=== PATIENT | male | born 1980 | race Two or more races ===

== ENCOUNTER → 2018-06-26 | Outpatient (CLI) | payer OTHER ==
--- NOTE | 2018-06-26 15:55 | MR ---
EXAMINATION TYPE: MR lumbar spine wo con DATE OF EXAM: 06/26/2018 COMPARISON: NONE HISTORY: LBP, rt leg weakness/numbness x 3 years TECHNIQUE: Multiplanar, multisequence imaging of the lumbar spine is performed without IV contrast. FINDINGS: Sagittal images of the lumbar spine show vertebral body heights and alignment to appear sat isfactory. There is disc desiccation L5-S1 level otherwise the intervertebral discs demonstrate shadi l heights and hydration. No large posterior disc herniations are seen on sagittal images. The conus medullaris is normal in position and signal ending inferior L1 level. The bone marrow signal intensi ty is within normal limits. No significant spurring is seen. Axial images show the T12-L1, L1-L2, L2-L3, L3-L4, and L4-L5 levels all to appear within normal limit s. Axial images at L5-S1 level show no significant disc herniation, spinal canal stenosis, neural forami nal narrowing. No suspicious retroperitoneal findings are seen. The paraspinal spinal muscle bulk is maintained. IMPRESSION: Disc desiccation L5-S1 level otherwise unremarkable study.
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
== END | disposition home or self-care (01) ==
LOC: RADMRIMAIN 14:28
PROVIDERS: ATTEND Psychiatry & Neurology Neurology
DX: R90.89 Other abnormal findings on diagnostic imaging of central nervous system (principal); R93.0 Abnormal findings on diagnostic imaging of skull and head, not elsewhere classified; M54.5 Low back pain
CPT/HCPCS: 70553; 72148; A9581

== ENCOUNTER → 2018-08-20 | Outpatient (CLI) | payer OTHER ==
--- NOTE | 2018-08-21 02:02 | MR ---
EXAMINATION TYPE: MR cervical spine wo con DATE OF EXAM: 08/20/2018 COMPARISON: None HISTORY: Neck pain, headaches TECHNIQUE: Multiplanar, multisequence images of the cervical spine were acquired. Findings Cervical vertebra have normal spacing and alignment. Posterior elements are intact. There is no compr ession fracture. Cervical spinal cord has normal signal pattern. There is no edema. There is no cervi jonathan spinal stenosis. There is no sign of cervical disc herniation. Brainstem appears normal. There is no sign of cervical paraspinal mass. IMPRESSION: Normal MR scan of the cervical spine.
== END | disposition home or self-care (01) ==
LOC: RADMRIMAIN 15:36
PROVIDERS: ATTEND Psychiatry & Neurology Pain Medicine
DX: M54.2 Cervicalgia (principal)
CPT/HCPCS: 72141

== ENCOUNTER 2018-11-04 16:31 | Inpatient (IN) | payer OTHER ==
[2018-11-04 18:11] LABS: Basophils # (A) 0.1 k/uL (0-0.2); Basophils % (A) 1 %; Eosinophils # (A) 0.3 k/uL (0-0.7); Eosinophils % (A) 3 %; HCT 46.7 % (39.0-53.0); HGB 15.7 gm/dL (13.0-17.5); Lymphocytes % (A) 34 %; MCH 28.4 pg (25.0-35.0); MCHC 33.6 g/dL (31.0-37.0); MCV 84.6 fL (80.0-100.0); Mean Platelet Volume 6.5; Monocytes # (A) 0.7 k/uL (0-1.0); Monocytes % (A) 6 %; Neutrophils # (A) 6.4 k/uL (1.3-7.7); Neutrophils % (A) 55 %; Platelet Count 314 k/uL (150-450); RBC 5.53 m/uL (4.30-5.90); RDW 12.8 % (11.5-15.5); WBC 11.6 k/uL (3.8-10.6)
[2018-11-04 18:18] LABS: ALT 53 U/L (21-72); AST 33 U/L (17-59); Albumin 4.4 g/dL (3.5-5.0); Alkaline Phosphatase 66 U/L (38-126); Anion Gap 10 mmol/L; Blood Urea Nitrogen 17 mg/dL (9-20); Calcium 9.4 mg/dL (8.4-10.2); Carbon Dioxide 27 mmol/L (22-30); Chloride 105 mmol/L (98-107); Glucose 96 mg/dL (74-99); Potassium 4.3 mmol/L (3.5-5.1); Sodium 142 mmol/L (137-145); Total Bilirubin 0.8 mg/dL (0.2-1.3); Total Protein 7.9 g/dL (6.3-8.2)
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
--- NOTE | 2018-11-04 19:51 | CT ---
EXAMINATION TYPE: CT brain wo con DATE OF EXAM: 11/04/2018 COMPARISON: None HISTORY: Double vision and dizziness CT DLP: 1146.4 mGycm. Automated Exposure Control for Dose Reduction was Utilized. TECHNIQUE: CT scan of the head is performed without contrast. FINDINGS: Ventricles and sulci appear normal. There is no mass effect nor midline shift. There is no sign of intracranial hemorrhage. The calvarium is intact. Impression negative CT scan of the brain.
[2018-11-04] MEDS ORDERED: NALOXONE 0.4 MG/ML 1 ML VIAL IV PRN (21:03)
[2018-11-05] MEDS ORDERED: SUMAtriptan SUCCINATE 50 MG TAB PO STA (00:15)
[2018-11-05] MEDS: SODIUM CHLORIDE 0.9% 1,000 ML IV SCH ×2 (06:46→21:32)
[2018-11-05] MEDS ORDERED: INFLUENZA VACCINE (6 MOS+) 60 MCG/0.5 ML SYRINGE IM ONE (12:53)
--- NOTE | 2018-11-05 13:09 | MR ---
MR brain without contrast HISTORY: Diplopia Multiplanar multisequence imaging through the brain. Correlation to prior brain MRI 06/26/2018, CT brain 11/04/2018 There is no restricted diffusion present. There is no hemorrhage or hydrocephalus. Periventricular co nfluent and scattered hyperintensities are present on inversion recovery and T2-weighted sequences si milar to prior exam. There are normal vascular flow voids present. Corpus callosum, pituitary, cervic al medullary junction, cerebellopontine angles are unremarkable. Inflammatory change present in the r ight mastoid air cells. Orbits show symmetric appearance. IMPRESSION: Stable abnormal brain MRI, correlate for possible multiple sclerosis, migraine headache, hypertension, vasculitis, Lyme disease. Inflammatory change right mastoid air cells.
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
[2018-11-06] MEDS ORDERED: buPROPion XL 150 MG TAB.ER.24H PO SCH (09:00)
[2018-11-06] MEDS: PROPRANOLOL 40 MG TAB PO SCH ×2 (09:13→23:22)
[2018-11-06] MEDS: MONTELUKAST 10 MG TAB PO SCH (09:13)
[2018-11-06] MEDS: SUMAtriptan SUCCINATE 50 MG TAB PO PRN (09:13)
[2018-11-06 11:34] LABS: Basophils % (A) 0 %; Eosinophils # (A) 0.1 k/uL (0-0.7); Eosinophils % (A) 0 %; HCT 46.2 % (39.0-53.0); HGB 16.3 gm/dL (13.0-17.5); Lymphocytes # (A) 1.4 k/uL (1.0-4.8); Lymphocytes % (A) 10 %; MCH 29.5 pg (25.0-35.0); MCHC 35.3 g/dL (31.0-37.0); MCV 83.7 fL (80.0-100.0); Mean Platelet Volume 6.6; Monocytes # (A) 0.2 k/uL (0-1.0); Monocytes % (A) 2 %; Neutrophils # (A) 12.5 k/uL (1.3-7.7); Neutrophils % (A) 88 %; Platelet Count 308 k/uL (150-450); RBC 5.52 m/uL (4.30-5.90); RDW 12.7 % (11.5-15.5); WBC 14.2 k/uL (3.8-10.6)
[2018-11-06 11:45] LABS: Anion Gap 11 mmol/L; Blood Urea Nitrogen 14 mg/dL (9-20); Calcium 9.8 mg/dL (8.4-10.2); Carbon Dioxide 25 mmol/L (22-30); Chloride 104 mmol/L (98-107); Glucose 201 mg/dL (74-99); Magnesium 1.9 mg/dL (1.6-2.3); Potassium 4.5 mmol/L (3.5-5.1); Sodium 140 mmol/L (137-145)
--- NOTE | 2018-11-06 14:45 | P.CRDCN ---
History of Present Illness History of present illness: This is a pleasant 38-year-old male past medical history significant for paroxysmal atrial fibrillation status post ablation in 2016 in [place]. He states he underwent ablation in 2016 and less than a year later he started having episodes of paroxysmal atrial fibrillation again. He has a loop recorder in place and is established in town with Dr. Upton he also has a history of obstructive sleep apnea, migraine headaches and traumatic brain injury. The patient states he has undergone a stress test and echocardiogram in the past and as far as he was told everything was normal. Records are unavailable at this time. He states for the previous few days he's noticed that his vision has been blurred and he is seeing things". He first noticed it while he was watching television was reading subtitle sinus seemed as though he had very close to the TV in order to make double vision go away. Then yesterday while he was driving he was seen in the vehicle in front of them also appear on the right sided in his peripheral vision. He has undergone a full neurologic workup as well as been seen in consultation by neurology. Diagnostic testing reveals no evidence of an acute intracranial abnormality however there is evidence of scattered hyperintensities noted on the MRI which were apparently similar to previous study. He denies symptoms of chest discomfort, palpitations, dizziness or shortness of breath. He states he cannot usually tell when he is in atrial fibrillation. He had his loop recorder interrogated in the office earlier this year in March showed sinus mechanism with no acute arrhythmia noted. EKG obtain reveals sinus mechanism. Laboratory data reviewed, WBC 14.2, hemoglobin 16.3, plethora, sodium 140, potassium 4.5, creatinine 0.5, magnesium 1.9. CT of the brain negative for acute intracranial process. MRI of the brain indicates a stable abnormal brain MRI with no evidence of hemorrhage or hydrocephalus. Scattered hyperintensities noted similar to prior exam inflammatory change noted of the right mastoid air cells. Current cardiac medications include propanolol 40 mg twice a day. At the time of my exam: CONSTITUTIONAL: Denies fever. Denies chills. EYES: Denies blurred vision. Denies vision changes. Denies eye pain. EARS, NOSE, MOUTH & THROAT: Denies headache. Denies sore throat. Denies ear pain. CARDIOVASCULAR: Denies chest pain. Denies shortness of breath. Denies orthopnea. Denies PND. Denies palpitations. RESPIRATORY: Denies cough. GASTROINTESTINAL: Denies abdominal pain. Denies diarrhea. Denies constipation. Denies nausea. Denies vomiting. MUSCULOSKELETAL: Denies myalgias. INTEGUMENTARY: Denies pruitis. Denies rash. NEUROLOGIC: Denies numbness. Denies tingling. Denies weakness. PSYCHIATRIC: Denies anxiety. Denies depression. ENDOCRINE: Denies fatigue. Denies weight change. Denies polydipsia. Denies polyurina. GENITOURINARY: Denies burning, hematuria or urgency with micturation. HEMATOLOGIC: Denies history of anemia. Denies bleeding. Blood pressure 169/91 heart rate 93 afebrile maintaining oxygen saturation on room air GENERAL: This is a 38-year-old male in no apparent distress at the time of my examination. Obese. HEENT: Head is atraumatic, normocephalic. Pupils are equal, round. Sclerae anicteric. Conjunctivae are clear. Mucous membranes of the mouth are moist. Neck is supple. There is no jugular venous distention. No carotid bruit is heard. LUNGS: Clear to auscultation no wheezes, rales or rhonchi. No chest wall tenderness is noted on palpation or with deep breathing. HEART: Regular rate and rhythm without murmurs, rubs or gallops. S1 and S2 heard. ABDOMEN: Soft, nontender. Bowel sounds are heard. No organomegaly noted. EXTREMITIES: No evidence of peripheral edema and no calf tenderness noted. VASCULAR: Radial and dorsalis pedis pulses palpated, no evidence of clubbing. NEUROLOGIC: Patient is awake, alert and oriented x3. ASSESSMENT Paroxysmal atrial fibrillation not on timber faller anticoagulation, CHADS-VASC score 0. Currently has a loop recorder in place. History of ablation while living in [place] Diplopia History of traumatic brain injury PLAN Telemetry tracings have been reviewed and there is no evidence of any atrial fibrillation. A message has been left with Dr. Rosen regarding clarification as to whether or not this event is being deemed a CVA. If in fact the patient has suffered a CVA he will then require long-term anticoagulation for his atrial fibrillation. Obtain 2D echocardiogram and doppler study to assess cardiac structure and function. We will continue to follow and make recommendations accordingly. Thank you kindly for this consultation. Nurse Practitioner note has been reviewed, I agree with a documented findings and plan of care. Patient was seen and examined. Past Medical History Past Medical History: Atrial Fibrillation, Memory Impairment, Pneumonia Additional Past Medical History / Comment(s): Migraines, bronchitis History of Any Multi-Drug Resistant Organisms: None Reported Past Surgical History: Ablation, Appendectomy, Cholecystectomy Additional Past Surgical History / Comment(s): cardiac ablastion x 2, loop recorder, intra ocular lens replacements bilaterally. Past Anesthesia/Blood Transfusion Reactions: No Reported Reaction, Motion Sickness Smoking Status: Never smoker - Past Family History Father Family Medical History: Diabetes Mellitus, Hypertension Mother Family Medical History: Diabetes Mellitus, Hypertension Medications and Allergies Home Medications Medication Instructions Recorded Confirmed Type Memantine [Namenda] 10 mg PO DAILY 11/04/18 11/04/18 History Montelukast [Singulair] 10 mg PO DAILY 11/04/18 11/04/18 History Naproxen 500 mg PO DAILY 11/04/18 11/04/18 History Propranolol [Inderal] 40 mg PO BID 11/04/18 11/04/18 History SUMAtriptan SUCCINATE [Imitrex] 100 mg PO DIRECTED 11/04/18 11/04/18 History buPROPion HCL [Wellbutrin XL] 300 mg PO DAILY 11/04/18 11/04/18 History buPROPion XL [Wellbutrin XL] 150 mg PO DAILY 11/04/18 11/04/18 History Allergies Allergy/AdvReac Type Severity Reaction Status Date / Time No Known Allergies Allergy Verified 11/04/18 17:28 Physical Exam Vitals: Vital Signs Temp Pulse Pulse Pulse Resp BP BP 11/06/18 12:05 97.6 F 93 15 169/91 11/06/18 08:00 98 15 11/06/18 05:00 97.7 F 105 H 18 118/70 11/05/18 23:24 80 18 11/05/18 21:00 97.7 F 80 18 152/92 11/05/18 19:05 98.1 F 92 18 130/89 11/05/18 17:31 98.3 F 80 18 140/88 Pulse Ox 11/06/18 12:05 97 11/06/18 08:00 11/06/18 05:00 96 11/05/18 23:24 11/05/18 21:00 100 11/05/18 19:05 99 11/05/18 17:31 100 Intake and Output 11/05/18 11/06/18 11/06/18 22:59 06:59 14:59 Intake Total 640 Balance 640 Intake: Intake, IV Titration 220 Amount Sodium Chloride 0.9% 1, 120 000 ml @ 20 mls/hr IV . Q24H [facility] Rx#:[id number] methylPREDNISolone SOD 100 SUCC 500 mg In Sodium Chloride 0.9% 100 ml @ 100 mls/hr IVPB ONCE STA Rx#:[id number] Oral 420 Other: # Voids 1 2 Results 11/06/18 11:15 11/06/18 11:15 CBC 11/06/18 Range/Units 11:15 WBC 14.2 H (3.8-10.6) k/uL RBC 5.52 (4.30-5.90) m/uL Hgb 16.3 (13.0-17.5) gm/dL Hct 46.2 (39.0-53.0) % Plt Count 308 (150-450) k/uL Comprehensive Metabolic Panel 11/06/18 Range/Units 11:15 Sodium 140 (137-145) mmol/L Potassium 4.5 (3.5-5.1) mmol/L Chloride 104 (98-107) mmol/L Carbon Dioxide 25 (22-30) mmol/L BUN 14 (9-20) mg/dL Creatinine 0.84 (0.66-1.25) mg/dL Glucose 201 H (74-99) mg/dL Calcium 9.8 (8.4-10.2) mg/dL Current Medications Generic Name Dose Route Start Last Admin Trade Name Freq PRN Reason Stop Dose Admin Bupropion HCl 150 mg 11/06/18 09:00 11/06/18 10:14 Wellbutrin Xl PO 150 mg DAILY [facility] Administration Sodium Chloride 1,000 mls @ 20 mls/hr 11/04/18 21:15 11/05/18 21:32 Saline 0.9% IV 20 mls/hr .Q24H [facility] Administration Montelukast Sodium 10 mg 11/06/18 09:00 11/06/18 09:13 Singulair PO 10 mg DAILY [facility] Administration Naloxone HCl 0.2 mg 11/04/18 21:03 Narcan IV Q2M PRN Opioid Reversal Propranolol HCl 40 mg 11/06/18 09:00 11/06/18 09:13 Inderal PO 40 mg BID [facility] Administration Sumatriptan Succinate 100 mg 11/06/18 08:49 11/06/18 09:13 Imitrex PO 100 mg DAILY PRN Administration Migraine Headache Intake and Output 11/05/18 11/06/18 11/06/18 22:59 06:59 14:59 Intake Total 640 Balance 640 Intake: Intake, IV Titration 220 Amount Sodium Chloride 0.9% 1, 120 000 ml @ 20 mls/hr IV . Q24H [facility] Rx#:[id number] methylPREDNISolone SOD 100 SUCC 500 mg In Sodium Chloride 0.9% 100 ml @ 100 mls/hr IVPB ONCE STA Rx#:[id number] Oral 420 Other: # Voids 1 2 11/06/18 11:15 11/06/18 11:15
[2018-11-06] MEDS ORDERED: buPROPion XL 150 MG TAB.ER.24H PO ONE (15:45)
[2018-11-06] MEDS ORDERED: buPROPion XL 300 MG TAB.ER.24H PO ONE (16:00)
--- NOTE | 2018-11-06 17:29 | P.PN ---
Subjective Progress Note Date: 11/06/18 Patient is a pleasant 38-year-old male who is being followed by the neurology service for diplopia. Patient reports having double vision will driving his car yesterday. Patient states his double vision is horizontal. Patient denies headache. He does report nausea when he gets double vision. No lateralizing weakness. No focal neurological deficit. CT of the brain was done which showed no acute abnormality. MRI of the brain showed nonspecific white matter changes which was unchanged from previous MRI of 06/26/2018. Patient does have history of traumatic brain injury from a accident. Patient continues to complain of diplopia and will be seen by ophthalmology for an evaluation. At the time of my evaluation, patient's resting comfortably in bed and appears to be in no acute distress. Objective - Vital Signs Vital signs: Vital Signs Temp 97.6 F 11/06/18 12:05 Pulse 93 11/06/18 12:05 Resp 15 11/06/18 12:05 BP 169/91 11/06/18 12:05 Pulse Ox 97 11/06/18 12:05 Intake & Output 11/05/18 11/06/18 11/06/18 18:59 06:59 18:59 Intake Total 640 1360 Balance 640 1360 Intake: Intake, IV Titration 220 100 Amount Sodium Chloride 0.9% 1, 120 100 000 ml @ 20 mls/hr IV . Q24H [facility] Rx#:[id number] methylPREDNISolone SOD 100 SUCC 500 mg In Sodium Chloride 0.9% 100 ml @ 100 mls/hr IVPB ONCE STA Rx#:[id number] Oral 420 1260 Other: # Voids 2 3 - Exam PHYSICAL EXAM: GENERAL APPEARANCE: Patient is a well-developed, male who appears to be in no acute distress. HEENT: Normocephalic, atraumatic, no facial asymmetry is seen. Neck is supple with no masses felt. CARDIOVASCULAR: Regular rate and rhythm. ABDOMEN: Nontender, nondistended. EXTREMITIES: Show no edema or clubbing. NEUROLOGICAL EXAM: Patient is awake, alert, and oriented 3. Speech and language are normal. Strength is full in all 4 extremities. Sensory exam is normal to light touch in all 4 extremities. No facial asymmetry is seen on cranial nerve testing. No tremors or seizure-like activity noted. - Labs CBC & Chem 7: 12/12/18 11:15 11/06/18 11:15 Labs: Abnormal Lab Results - Last 24 Hours (Table) 11/06/18 11/06/18 Range/Units 11:15 11:15 WBC 14.2 H (3.8-10.6) k/uL Neutrophils # 12.5 H (1.3-7.7) k/uL Glucose 201 H (74-99) mg/dL Assessment and Plan Plan: Impression: 1. Diplopia 2. History of traumatic brain injury 3. Atrial fibrillation Recommendation: Patient continues to have double vision and is awaiting evaluation from ophthalmology. As mentioned above, patient has nonspecific white matter changes on his MRI but this is unchanged as compared to previous MRI. Patient does have history of traumatic brain injury which could be white matter changes that are seen on the MRI. Patient did receive a dose of IV Solu- Medrol 500 mg and patient states it seemed to have helped him. I do recommend a myasthenia gravis panel laboratory workup. Continue current medical management. I will continue to follow with you. Further recommendations to follow. I performed an examination of the patient and discussed the management with the PURCHASING SUPERVISOR. I have reviewed the PURCHASING SUPERVISOR notes and agree with the findings and plan of care.
[2018-11-06] MEDS: SODIUM CHLORIDE 0.9% 1,000 ML IV SCH (23:23)
--- NOTE | 2018-11-07 00:02 | CONS ---
CONSULTATION SERVICE CONSULTED: Ophthalmology. DATE OF SERVICE: 11/06/2018. CHIEF COMPLAINT: Double vision. HISTORY OF PRESENT ILLNESS: The patient is a 38-year-old male with a known history of atrial fibrillation with cardiac ablation and migraine headache, who presented with 2-day history of double vision. The patient states that he was driving on Sunday and noticed that the cars in the road were double. No vision was horizontal. There was no associated headache. There is no associated numbness or tingling or vertigo. The double vision has been constant since the onset and has not changed. The double vision goes away when he closes one eye. The patient has no history of any similar visual symptoms in the past. REVIEW OF SYSTEMS: The patient denies fever, chills, chest pain, shortness of breath. He has occasional headaches that are stable. He denies vomiting or nausea. PAST MEDICAL HISTORY: Atrial fibrillation, migraine headaches. PAST SURGICAL HISTORY: Cardiac ablation, appendectomy, cholecystectomy. 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 SMOKING STATUS: Never smoked. PAST MEDICAL HISTORY: Significant for diabetes mellitus and hypertension. No ocular family history. HOME MEDICATIONS: 1. Singular. 2. Namenda. 3. Propranolol. 4. Imitrex. 5. Wellbutrin. ALLERGIES: No known drug allergies. DIAGNOSTIC STUDIES: MRI was performed and reveals periventricular confluent hyperintensities that may be consistent with multiple sclerosis, vasculitis or Lyme disease. OPHTHALMOLOGIC EXAM: Reveals visual acuity of 20/30 in the right eye without correction and 20/30 in the left eye without correction. Intra-ocular pressures are 17 in both eyes. Pupils are equal, round, reactive to light and accommodation. There is no afferent pupillary defect. Extraocular movements reveal limited abduction of the left eye. Otherwise, extraocular movements are full. Confrontation visual oconnor are full in both eyes. Corneal examination reveals an ICL in both corneas. Lenses are clear in both eyes. The remainder of the ophthalmic exam is within normal limits. ASSESSMENT: Sixth nerve palsy, left eye. The patient presents with new onset sixth nerve palsy. The differential diagnosis considering his age, body habitus, and MRI results are multiple sclerosis or possible increased intracranial pressure causing a sixth nerve palsy. I recommend consultation with a neurologist. I would also recommend a lumbar puncture to check opening pressures and also to sample the cerebral spinal fluid for diagnostic evaluation. After evaluation with Neurology and lumbar puncture is complete, I can re-evaluate the patient. Patient to be seen as an outpatient after discharge within 1 week of discharge. Thank you for allowing me to participate in this patient's care. SAMI / SYDN: [id number] /
--- NOTE | 2018-11-07 03:42 | P.PN ---
Subjective Progress Note Date: 11/06/18 Principal diagnosis: Diplopia History of traumatic brain injury with white matter changes in the MRI Patient is a 38-year-old male with a known history of atrial fibrillation and cardiac ablation, migraine headache came to the hospital with the complaints of double vision. Patient says that his symptoms started since last Sunday. Patient was driving the car on Sunday afternoon and suddenly he noticed was having double vision by seeing the front car [id number]. Patient states this only occurs with objects that are greater than 5 or 10 feet away. Patient feels like his eyes have been straining, otherwise no significant headache. No complaints of eye pain. Patient does have a history of headaches however not associated with this. No confusion. No weakness. Patient does have some mild dizziness/lightheadedness and mild nausea. No vomiting. No spinning type sensation. No history of similar visual problems previously. Patient does have a history of atrial fibrillation and ablation. Patient is currently not on any anticoagulation after ablation. Patient does follow with cardiology clinic as an outpatient. Patient says that he had a history of traumatic brain injury. No history of brain surgery. Denied any recent illnesses except diarrhea and dizziness on last Sunday which has been resolved at this time. No fever no chills. No chest pain or shortness of breath. MRI of the brain showed stable findings. Correlate for possible multiple sclerosis, migraine headache, hypertension, vasculitis, length disease. Inflammatory change right mastoid air cells. CT head showed negative findings. 11/06/2018 Patient is still complaining of double vision but seems to be improved compared to yesterday. MRI findings of white matter changes could be due to traumatic brain injury as per neurology. Patient was given a dose of methylprednisolone. Neurology recommends myasthenia gravis panel workup. Patient was seen by cardiology and recommended no anticoagulation with CHADS : 0. Unless patient is suspected to have acute CVA. Patient is currently maintained in sinus rhythm. Ophthalmology evaluation is pending at this time. All other review of systems negative except the above. No chest pain or shortness of breath. No fever no chills. Objective - Vital Signs Vital signs: Vital Signs Temp 98.0 F 11/06/18 20:01 Pulse 100 11/06/18 20:01 Resp 16 11/06/18 20:01 BP 132/76 11/06/18 20:01 Pulse Ox 97 11/06/18 20:01 Intake & Output 11/06/18 11/06/18 11/07/18 06:59 18:59 06:59 Intake Total 640 1360 Balance 640 1360 Intake: Intake, IV Titration 220 100 Amount Sodium Chloride 0.9% 1, 120 100 000 ml @ 20 mls/hr IV . Q24H [facility] Rx#:[id number] methylPREDNISolone SOD 100 SUCC 500 mg In Sodium Chloride 0.9% 100 ml @ 100 mls/hr IVPB ONCE STA Rx#:[id number] Oral 420 1260 Other: # Voids 2 3 - Exam PHYSICAL EXAMINATION: Patient is lying in the bed comfortably, no acute distress, awake alert and oriented.. HEENT: Normocephalic. Neck is supple. Pupils reactive. Nostrils clear. Oral cavity is moist. Ears reveal no drainage. Neck reveals no JVD, carotid bruits, or thyromegaly. CHEST EXAMINATION: Trachea is central. Symmetrical expansion. Lung oconnor clear to auscultation and percussion. CARDIAC: Normal S1, S2 with no gallops. No murmurs ABDOMEN: Soft. Bowel sounds normal. No organomegaly. No abdominal bruits. Extremities: reveal no edema. No clubbing or cyanosis Neurologically awake, alert, oriented x3 with well-coordinated movements. No focal deficits noted Skin: No rash or skin lesions. Psychiatric: Coperative. Nonsuicidal Musculoskeletal: No joint swelling or deformity. Normal range of motion. - Labs CBC & Chem 7: 11/06/18 11:15 11/06/18 11:15 Labs: Abnormal Lab Results - Last 24 Hours (Table) 11/06/18 11/06/18 Range/Units 11:15 11:15 WBC 14.2 H (3.8-10.6) k/uL Neutrophils # 12.5 H (1.3-7.7) k/uL Glucose 201 H (74-99) mg/dL Assessment and Plan Assessment: Diplopia with history of rheumatic brain injury.. History of atrial fibrillation status post ablation 2. Currently maintaining sinus rhythm. History of intraocular lens replacements bilaterally Migraine headache Memory impairment Depression DVT prophylaxis with early ambulation Plan: 38-year-old male with a known history of atrial fibrillation status post ablation 2 currently maintained in sinus rhythm was admitted to the hospital double vision for the past 3 days. MRI showed no evidence of CVA. Neurology recommends myasthenia gravis panel. Neurology and ophthalmology was consulted. . Continue the telemetry monitoring. Audiology has seen the patient.. Further recommendations based on the clinical course. Time with Patient: Greater than 30
[2018-11-07] MEDS: buPROPion XL 150 MG TAB.ER.24H PO SCH (08:58)
[2018-11-07] MEDS: MONTELUKAST 10 MG TAB PO SCH (08:58)
[2018-11-07] MEDS: PROPRANOLOL 40 MG TAB PO SCH (08:58)
[2018-11-07] MEDS ORDERED: buPROPion XL 300 MG TAB.ER.24H PO SCH (09:00)
[2018-11-07] MEDS: SUMAtriptan SUCCINATE 50 MG TAB PO PRN (09:27)
--- NOTE | 2018-11-07 12:31 | ECHOF ---
Referral Reason:history of afib MEASUREMENTS -------- HEIGHT: 170.2 cm WEIGHT: 122.5 kg BP: 139/82 RVIDd: 3.2 cm (< 3.3) IVSd: 1.5 cm (0.6 - 1.1) LVIDd: 4.7 cm (3.9 - 5.3) LVPWd: 1.4 cm (0.6 - 1.1) IVSs: 2.1 cm LVIDs: 3.4 cm LVPWs: 1.9 cm LA Diam: 3.8 cm (2.7 - 3.8) LAESV Index (A-L): 32.51 ml/m Ao Diam: 3.7 cm (2.0 - 3.7) MV EXCURSION: 23.948 mm (> 18.000) MV EF SLOPE: 148 mm/s (70 - 150) EPSS: 0.7 cm MV E Joe: 0.70 m/s MV DecT: 237 ms MV A Joe: 0.50 m/s MV E/A Ratio: 1.40 FINDINGS -------- Sinus rhythm. This was a technically adequate study. The left ventricular size is normal. There is moderate concentric left ventricular hypertrophy. O verall left ventricular systolic function is low-normal with, an EF between 50 - 55 %. The right ventricle is normal in size. LA is midly dilated 29-33ml/m2. The right atrium is normal in size. The aortic valve is trileaflet and appears structurally normal. The mitral valve is normal. Mild mitral regurgitation is present. The tricuspid valve appears structurally normal. Trace/mild (physiologic) pulmonic regurgitation. The aortic root size is normal. Normal inferior vena cava with normal inspiratory collapse consistent with estimated right atrial pre ssure of 5 mmHg. The inferior vena cava is mildly dilated. There is no pericardial effusion. CONCLUSIONS -------- 1. Sinus rhythm. 2. This was a technically adequate study. 3. The left ventricular size is normal. 4. There is moderate concentric left ventricular hypertrophy. 5. Overall left ventricular systolic function is low-normal with, an EF between 50 - 55 %. 6. LA is midly dilated 29-33ml/m2. 7. The aortic valve is trileaflet and appears structurally normal. 8. Mild mitral regurgitation is present. 9. The tricuspid valve appears structurally normal. 10. Trace/mild (physiologic) pulmonic regurgitation. 11. The aortic root size is normal. 12. Normal inferior vena cava with normal inspiratory collapse consistent with estimated right atrial pressure of 5 mmHg. 13. The inferior vena cava is mildly dilated. 14. There is no pericardial effusion. PONY CYLINDER PRESS OPERATOR: Whitney Bullard RDCS
--- NOTE | 2018-11-07 15:47 | P.PN ---
Subjective Progress Note Date: 11/07/18 Patient is a pleasant 38-year-old male who is being followed by the neurology service for diplopia. Patient reports having double vision will driving his car yesterday. Patient states his double vision is horizontal. Patient denies headache. He does report nausea when he gets double vision. No lateralizing weakness. No focal neurological deficit. CT of the brain was done which showed no acute abnormality. MRI of the brain showed nonspecific white matter changes which was unchanged from previous MRI of 06/26/2018. Patient does have history of traumatic brain injury from a accident. Patient continues to complain of diplopia and will be seen by ophthalmology for an evaluation. At the time of my evaluation, patient's resting comfortably in bed and appears to be in no acute distress. 11/07/2018 Patient is a pleasant 38-year-old male who is being followed by the neurology service for diplopia. Patient was seen by ophthalmology. Ophthalmology is recommending lumbar puncture for possible old pill sclerosis diagnosis or possible increased intracranial pressure causing sixth nerve palsy. Patient is established in our practice and he will follow-up for diagnostic lumbar puncture for possible MS or increased intracranial pressure. At the time of my evaluation, patient's resting comfortably in bed and appears to be in no acute distress. Patient states his diplopia is moderately improved since steroid infusion. Objective - Vital Signs Vital signs: Vital Signs Temp 97.9 F 11/07/18 04:27 Pulse 90 11/07/18 08:00 Resp 16 11/07/18 08:00 BP 139/82 11/07/18 04:27 Pulse Ox 95 11/07/18 04:27 Intake & Output 11/06/18 11/07/18 11/07/18 18:59 06:59 18:59 Intake Total 1360 1680 960 Balance 1360 1680 960 Weight 122.47 kg Intake: Intake, IV Titration 100 Amount Sodium Chloride 0.9% 1, 100 000 ml @ 20 mls/hr IV . Q24H [facility] Rx#:[id number] Oral 1260 1680 960 Other: # Voids 3 2 - Exam PHYSICAL EXAM: GENERAL APPEARANCE: Patient is a well-developed, male who appears to be in no acute distress. HEENT: Normocephalic, atraumatic, no facial asymmetry is seen. Neck is supple with no masses felt. CARDIOVASCULAR: Regular rate and rhythm. ABDOMEN: Nontender, nondistended. EXTREMITIES: Show no edema or clubbing. NEUROLOGICAL EXAM: Patient is awake, alert, and oriented 3. Speech and language are normal. Strength is full in all 4 extremities. Sensory exam is normal to light touch in all 4 extremities. No facial asymmetry is seen on cranial nerve testing. No tremors or seizure-like activity noted. - Labs CBC & Chem 7: 18 11:15 18 11:15 Assessment and Plan Plan: Impression: 1. Diplopia 2. History of traumatic brain injury 3. Atrial fibrillation Recommendation: Patient continues to have double vision but states this is improved since steroids were given. As mentioned above, patient has nonspecific white matter changes on his MRI but this is unchanged as compared to previous MRI. Patient does have history of traumatic brain injury which could be white matter changes that are seen on the MRI. Multiple sclerosis is certainly in the differential for white matter changes on the MRI. Lumbar puncture for both opening pressure and evaluation for oligoclonal bands in the CSF can be done as an outpatient in the office. Patient is stable for discharge from a neurological standpoint. I do recommend a myasthenia gravis panel laboratory workup. If not already done, this can be done as an outpatient and we will order that when patient returns to the office. If it is more comfortable, patient may wear a patch over one eye to decrease the double vision. Following testing and lumbar puncture, patient will follow with ophthalmology. Continue current medical management. I will continue to follow with you on an as-needed basis. Feel free to call with any questions or concerns. I performed an examination of the patient and discussed the management with the [employer]. I have reviewed the [employer] notes and agree with the findings and plan of care.
--- NOTE | 2018-11-07 23:39 | P.PN ---
Subjective Patient is a 78-year-old female with a known history of diabetes type 2 non- insulin-dependent, hyperlipidemia and also history of left frozen shoulder was initially presented to [facility] status post fall. Patient was apparently picking up Stephanie card and suddenly tip in her left shoe and fell flat on the ground hitting the left hip. This happened around 4:30 PM yesterday evening. [facility] showed left femoral neck fracture. Patient was eventually transferred to [facility] to be evaluated by orthopedic surgery. Currently patient denied any fever or chills. No recent illnesses. No complaints of chest pain or shortness of breath. No numbness or tingling of this leg. No nausea vomiting or abdominal pain. No diarrhea. No hematuria or dysuria. Orthopedic surgery has seen the patient and is planning for or tomorrow a.m. 11/07/18 today pt feels his diplopia looks better , denies Headache, no wakness in arms or legs , on my exam his diplopia is more on looking to the left side.pt has been evaluated by neurolgy service and recommended outpt follow up . ophthalmology input is appreciated and he mostly has sixth n palsy. possible discharge in 24 hours . keep monitoring Objective - Vital Signs Vital signs: Vital Signs Temp 97.6 F 11/07/18 13:25 Pulse 90 11/07/18 16:00 Resp 22 11/07/18 16:00 BP 149/88 11/07/18 13:25 Pulse Ox 97 11/07/18 13:25 Intake & Output 11/07/18 11/07/18 11/08/18 06:59 18:59 06:59 Intake Total 1680 1840 Balance 1680 1840 Weight 122.47 kg 122.47 kg Intake: Intake, IV Titration 160 Amount Sodium Chloride 0.9% 1, 160 000 ml @ 20 mls/hr IV . Q24H [facility] Rx#:[id number] Oral 1680 1680 Other: # Voids 2 3 - Exam GENERAL: The patient is alert and oriented x3, not in any acute distress. Well developed, well nourished. HEENT: Pupils are round and equally reacting to light. EOMI. No scleral icterus. No conjunctival pallor. Normocephalic, atraumatic. No pharyngeal erythema. No thyromegaly. CARDIOVASCULAR: S1 and S2 present. No murmurs, rubs, or gallops. PULMONARY: Chest is clear to auscultation, no wheezing or crackles. ABDOMEN: Soft, nontender, nondistended, normoactive bowel sounds. No palpable organomegaly. MUSCULOSKELETAL: No joint swelling or deformity. EXTREMITIES: No cyanosis, clubbing, or pedal edema. NEUROLOGICAL: Gross neurological examination did not reveal any focal deficits. diplopia on moving to the left side SKIN: No rashes. - Labs CBC & Chem 7: 11/06/18 11:15 11/06/18 11:15 Assessment and Plan Assessment: Assessment: Diplopia. neurolgy and ophthalmolgy f/u is appreciated , moslty outpt work up History of atrial fibrillation status post ablation 2 History of intraocular lens replacements bilaterally Migraine headache Memory impairment Depression DVT prophylaxis with early ambulation Plan: 38-year-old male with a known history of atrial fibrillation status post ablation 2 currently maintained in sinus rhythm was admitted to the hospital double vision for the past 3 days. MRI showed no evidence of CVA. Possible multiple sclerosis was suspected. Neurology and ophthalmology was consulted. We will get twelve-lead EKG and follow closely. Continue the telemetry monitoring. Consider cardiology evaluation. Further recommendations based on the clinical course.
[2018-11-08] MEDS: PROPRANOLOL 40 MG TAB PO SCH ×2 (00:02→09:50)
[2018-11-08] MEDS: SODIUM CHLORIDE 0.9% 1,000 ML IV SCH (00:05)
[2018-11-08 06:30] VITALS: BP 128/89; TEMP 97.5
[2018-11-08 08:01] LABS: Basophils # (A) 0.1 k/uL (0-0.2); Basophils % (A) 1 %; Eosinophils # (A) 0.3 k/uL (0-0.7); Eosinophils % (A) 3 %; HCT 47.5 % (39.0-53.0); Lymphocytes # (A) 4.5 k/uL (1.0-4.8); Lymphocytes % (A) 37 %; MCH 29.1 pg (25.0-35.0); MCHC 33.7 g/dL (31.0-37.0); MCV 86.2 fL (80.0-100.0); Mean Platelet Volume 6.5; Monocytes # (A) 0.7 k/uL (0-1.0); Monocytes % (A) 5 %; Neutrophils # (A) 6.5 k/uL (1.3-7.7); Neutrophils % (A) 53 %; Platelet Count 268 k/uL (150-450); RBC 5.51 m/uL (4.30-5.90); RDW 13.1 % (11.5-15.5); WBC 12.3 k/uL (3.8-10.6)
[2018-11-08] MEDS: MONTELUKAST 10 MG TAB PO SCH (09:50)
[2018-11-08] MEDS: buPROPion XL 150 MG TAB.ER.24H PO SCH (09:50)
[2018-11-08] MEDS: SUMAtriptan SUCCINATE 50 MG TAB PO PRN (10:36)
[2018-11-08 11:54] VITALS: PULSE 92; RESP 16
--- NOTE | 2018-11-08 12:39 | P.DS ---
Providers Date of admission: 11/04/18 21:03 Attending physician: Valdemar Elaine MD Consults: 11/04/18 21:04 Consult Physician Urgent Consulting Provider: Daren Rosen Consult Reason/Comments: Diplopia Do you want consulting provider notified?: Yes 11/05/18 19:12 Consult Physician Routine Consulting Provider: Samy Garcia Consult Reason/Comments: Diplopia Do you want consulting provider notified?: Yes 11/06/18 09:36 Consult Physician Urgent Consulting Provider: Laura Colon Consult Reason/Comments: episode of a-fib Do you want consulting provider notified?: Already Contacted Primary care physician: [facility] Course: this is a pleasant 38 yo M qith [facility] of paroxysmal atrial fibrillation and found to have sixth nerve palsy when he was evaluated by ophthalmology team. Recommended to have lumbar puncture to rule out increased intracranial pressure versus other diseases like multiple sclerosis. Neurological evaluated the patient and agrees with this plan and both ophthalmology and neurology team are cleared the patient for discharge and follow-up as an outpatient. Patient felt some improvement after steroid injection, however he denies headache. No weakness or abnormal sensation or numbness in extremities or somewhere else. Gait is normal. No nausea vomiting. No abdominal pain or chest pain. No dyspnea. Continue on bowel habits. patient has nonspecific white matter changes on his MRI but this is unchanged as compared to previous MRI. Patient does have history of traumatic brain injury which could be white matter changes that are seen on the MRI. Cardiology to evaluate the patient for his atrial fibrillation. Currently heart rate is stable and patient is not on anticoagulation. Problems and management plan was discussed with the patient and he verbalized understanding and acceptance Patient was found stable and can be discharged home and guarded prognosis, however he needs follow-up as an outpatient. Appointments and days were reviewed with the patient and he agrees with it and the timing. physical exam Gen.: Patient alert awake and oriented X 3, NOT IN DISTRESS. Increased with vision on looking on the left side CVS: s1-s2, RRR, no murmur CHEST:bilateral CTA, no wheezing or crepitation Abdomen: Soft, no tenderness, no distention, positive bowel sounds Extremities: No leg edema or induration Time spent more than 35 minutes Plan - Discharge Summary Discharge Rx Participant: No New Discharge Prescriptions: Continue buPROPion XL [Wellbutrin XL] 150 mg PO DAILY buPROPion HCL [Wellbutrin XL] 300 mg PO DAILY SUMAtriptan SUCCINATE [Imitrex] 100 mg PO DIRECTED Propranolol [Inderal] 40 mg PO BID Montelukast [Singulair] 10 mg PO DAILY Memantine [Namenda] 10 mg PO DAILY Discontinued Naproxen 500 mg PO DAILY Discharge Medication List Memantine [Namenda] 10 mg PO DAILY 11/04/18 [History] Montelukast [Singulair] 10 mg PO DAILY 11/04/18 [History] Propranolol [Inderal] 40 mg PO BID 11/04/18 [History] SUMAtriptan SUCCINATE [Imitrex] 100 mg PO DIRECTED 11/04/18 [History] buPROPion HCL [Wellbutrin XL] 300 mg PO DAILY 11/04/18 [History] buPROPion XL [Wellbutrin XL] 150 mg PO DAILY 11/04/18 [History] Follow up Appointment(s)/Referral(s): Melia Pablo MD [STAFF PHYSICIAN] - 11/14/18 2:30 pm Daren Rosen MD [STAFF PHYSICIAN] - 1 Week (Dr. Rosen's office will call patient with an appointment date and time. ) Demetrius Upton MD [STAFF PHYSICIAN] - 3 Weeks (Dr. Upton's office will call patient with an appointment date and time. ) [facility] [Primary Care Provider] - 11/11/18 1:00 pm (Recommend to check your blood test with your Dr. including your white cell count [WBC]) Patient Instructions/Handouts: Diplopia (DC) Discharge Disposition: HOME SELF-CARE
== END 2018-11-08 13:30 | disposition home or self-care (01) | DRG 123 ==
LOC: EC 16:31 → 4SSUR 21:03 → 3NMEDONC 11-05 13:41
PROVIDERS: ADMIT Internal Medicine; ATTEND Internal Medicine
DX: H49.22 Sixth [abducent] nerve palsy, left eye (principal); D72.829 Elevated white blood cell count, unspecified; E11.9 Type 2 diabetes mellitus without complications; E78.5 Hyperlipidemia, unspecified; F32.9 Major depressive disorder, single episode, unspecified; F43.10 Post-traumatic stress disorder, unspecified; G43.909 Migraine, unspecified, not intractable, without status migrainosus; G47.33 Obstructive sleep apnea (adult) (pediatric); I10 Essential (primary) hypertension; I48.0 Paroxysmal atrial fibrillation; Z79.899 Other long term (current) drug therapy; Z82.49 Family history of ischemic heart disease and other diseases of the circulatory system; Z83.3 Family history of diabetes mellitus; Z87.820 Personal history of traumatic brain injury; Z90.49 Acquired absence of other specified parts of digestive tract; Z79.51 Long term (current) use of inhaled steroids
CPT/HCPCS: 36415; 70450; 70551; 80048; 80053; 83735; 85025; 90471; 90686; 93005; 93306; 99285

== ENCOUNTER → 2019-10-25 | Outpatient (CLI) | payer OTHER ==
--- NOTE | 2019-10-25 12:15 | MR ---
EXAMINATION TYPE: MR brain wo/w con DATE OF EXAM: 10/25/2019 COMPARISON: MRI brain November 05, 2018 HISTORY: White matter changes, MS protocol TECHNIQUE: Multiplanar, multisequence images of the brain and brainstem is performed without and with IV contras t, utilizing 12.5 mL intravenous Gadavist gadolinium contrast is administered intravenously. Demyeli nating disease protocol with additional Sagittal Flair sequence performed. FINDINGS: T2 Lesions Present : Yes Approximate Number of Lesions: Approximately 15 scattered Locations Identified : Scattered with anterior right lower pontine lesion noted axial image 8 Size of Reference Lesion(s): 1. 7 x 5 x 8 mm high right posterior frontal periventricular lesion axial images 23 and sagittal imag e 24 grossly stable Enhancing Lesion(s) Present: No Change from Prior: Increased in number Diffusion weighted images demonstrate no evidence of a recent infarct or other diffusion abnormality. There is no worrisome extra-axial fluid collection. The ventricular system and cisternal spaces ar e normal in size and appearance. The brain volume is age appropriate. Midline structures demonstrate normal morphology. The craniocervical junction appears within normal limits. Post contrast images demonstrate no abnormal enhancement. The dural venous sinuses appear pa tent. The visualized sinuses are clear and the globes are intact. IMPRESSION: Mild to moderate white matter changes presumed on the basis of known multiple sclerosis r edemonstrated. Some new lesions are seen including brainstem lesion. No enhancing active lesions are present.
== END | disposition home or self-care (01) ==
LOC: RADMRIMAIN 10:45
PROVIDERS: ATTEND Psychiatry & Neurology Pain Medicine
DX: R90.89 Other abnormal findings on diagnostic imaging of central nervous system (principal); G93.89 Other specified disorders of brain
CPT/HCPCS: 70553

== ENCOUNTER → 2019-12-09 | Outpatient (CLI) | payer OTHER ==
--- NOTE | 2019-12-09 19:44 | MR ---
EXAMINATION TYPE: MR cervical spine wo/w con DATE OF EXAM: 12/09/2019 COMPARISON: 08/20/2018 HISTORY: Headaches, BUE weakness, MS TECHNIQUE: Multiplanar, multisequence images of the cervical spine were acquired utilizing 13 mL intravenous Ghulam avist gadolinium contrast. Diffusion weighted imaging was performed. Exam is limited by extreme motion artifact. Assessment spinal cord markedly limited. Grossly alignmen t is anatomic. Vertebral body height and disc interspaces maintained. No significant evidence of dege nerative disc disease. Craniocervical junction maintained. No obvious pathological enhancement. Lymph adenopathy in the left carotid space measuring short axis of 1.2 cm. C2-C3: No evidence for degenerative disc disease. No disc bulge/herniation or protrusion. No Canal stenosis. Foramina are patent bilaterally. C3-C4: No evidence for degenerative disc disease. No disc bulge/herniation or protrusion. No Canal stenosis. Foramina are patent bilaterally. C4-C5: No evidence for degenerative disc disease. No disc bulge/herniation or protrusion. No Canal stenosis. Foramina are patent bilaterally. C5-C6: No evidence for degenerative disc disease. No disc bulge/herniation or protrusion. No Canal stenosis. Foramina are patent bilaterally. C6-C7: No evidence for degenerative disc disease. No disc bulge/herniation or protrusion. No Canal stenosis. Foramina are patent bilaterally. C7-T1: No evidence for degenerative disc disease. No disc bulge/herniation or protrusion. No Canal stenosis. Foramina are patent bilaterally. IMPRESSION: Markedly limited exam due to motion artifact. Assessment of the spinal cord is significantly limited due to motion. No obvious enhancement. No disc herniation or canal stenosis. There is enlarged lymph node in the left carotid space measuring 1.2 cm correlate clinically.
== END | disposition home or self-care (01) ==
LOC: RADMRIMAIN 15:47
PROVIDERS: ATTEND Psychiatry & Neurology Pain Medicine
DX: G35 Multiple sclerosis (principal)
CPT/HCPCS: 72156; A9585

== ENCOUNTER → 2020-01-28 | Outpatient (CLI) | payer OTHER ==
[2020-01-28 12:15] LABS: Basophils # (A) 0.1 k/uL (0-0.2); Basophils % (A) 1 %; Eosinophils # (A) 0.3 k/uL (0-0.7); Eosinophils % (A) 3 %; HCT 48.5 % (39.0-53.0); Lymphocytes # (A) 2.7 k/uL (1.0-4.8); Lymphocytes % (A) 27 %; MCH 28.5 pg (25.0-35.0); MCHC 32.9 g/dL (31.0-37.0); MCV 86.4 fL (80.0-100.0); Mean Platelet Volume 7.1; Monocytes # (A) 0.6 k/uL (0-1.0); Monocytes % (A) 6 %; Neutrophils # (A) 6.2 k/uL (1.3-7.7); Neutrophils % (A) 62 %; Platelet Count 254 k/uL (150-450); RBC 5.61 m/uL (4.30-5.90); RDW 12.6 % (11.5-15.5)
[2020-01-28 17:48] LABS: Hepatitis B Surface AB- Quant 326.5 mIU/mL; Hepatitis B Surface Antibody Reactive (Non-Reactive); Hepatitis B Surface Antigen Non-Reactive (Non-Reactive); Hepatitis C IgG Antibody Non-Reactive (Non-Reactive)
[2020-01-28 17:59] LABS: ALT 47 U/L (10-49); AST 29 U/L (14-35); African American GFR (CKD) 125.1 (60.0-200.0); Alkaline Phosphatase 74 U/L (41-126); BUN/Creat Ratio 18.89 Ratio (12.00-20.00); Calcium 9.1 mg/dL (8.7-10.3); Carbon Dioxide 25.2 mmol/L (21.6-31.8); Chloride 110 mmol/L (96-109); Globulin 2.5 g/dL (1.6-3.3); Glucose 86 mg/dL (70-110); Potassium 3.8 mmol/L (3.5-5.5); Sodium 145 mmol/L (135-145); Total Bilirubin 0.5 mg/dL (0.2-1.2)
[2020-01-28 18:14] LABS: Folate, Serum >24.0 ng/mL
[2020-01-28 19:20] LABS: Hemoglobin A1C 5.2 % (4.0-6.0)
[2020-01-29 13:48] LABS: HIV-1 RNA Not detected (Not detected)
[2020-01-30 05:09] LABS: Varicella IgM Antibody 0.57 INDEX (<=0.90)
[2020-01-30 10:42] LABS: Vit B1(Thiamine) 98 ug/L (38-122)
[2020-01-30 12:41] LABS: Hepatitis BE Antigen NEG (Negative)
== END | disposition home or self-care (01) ==
LOC: LABWHC1 01-26 17:14
PROVIDERS: ATTEND Psychiatry & Neurology Pain Medicine
DX: G35 Multiple sclerosis (principal)
CPT/HCPCS: 36415; 80053; 82306; 82607; 82746; 83036; 84207; 84425; 84439; 84443; 84481; 84591; 85025; 86706; 86787; 86803; 87340; 87350; 87535

== ENCOUNTER → 2020-04-27 | Outpatient (CLI) | payer MEDICARE, OTHER ==
--- NOTE | 2020-04-27 16:28 | CT ---
EXAMINATION TYPE: CT soft tissue neck w con DATE OF EXAM: 04/27/2020 COMPARISON: MRI 12/09/2019 HISTORY: Abnormal MR per patient. No complaints at time of scan. CT DLP: 922.6 mGycm CONTRAST: Patient injected with 100 mL of Isovue 300. TECHNIQUE: Axial images at 3 mm thick sections. Reconstructed images in the coronal plane and sagitt al plane are reviewed. FINDINGS: Limited CT sections are obtained the lung apices. The lung apices appear clear. CT neck: The torus tubarius and fossa of Rosenmuller are normal. Medical Affairs Manager spaces are normal. Para nasal sinuses and mastoid air cells are clear. Parotid glands appear normal and symmetrical. Submandibular glands, are normal. Parapharyngeal spac es are normal. There is a 1.2 cm left jugulodigastric lymph node which is enlarged by CT criteria. S maller bilateral carotid sheath region lymph nodes are present. Hypopharynx appears small. The soft palate may be somewhat thickened in the sagittal plane. Epiglotti s appears unremarkable. Tonsillar pillars appear normal Vocal cord level appear symmetrical. Thyroid as visualized is normal. Osseous structures are normal. Spinal canal appears unremarkable. No obvious large disc herniations a re identified. No spinal canal stenosis is identified. IMPRESSIONS: 1. Appears to be some diffuse thickening through the soft palate. Direct visualization can be perform ed. 2. Enlarged 1.2 cm left jugulodigastric lymph node.
== END | disposition home or self-care (01) ==
LOC: RADCTMAIN 15:37
PROVIDERS: ATTEND Family Medicine
DX: R59.0 Localized enlarged lymph nodes (principal)
CPT/HCPCS: 70491; Q9967

== ENCOUNTER → 2020-06-02 | Outpatient (CLI) | payer MEDICARE, OTHER | END | disposition home or self-care (01) | LOC: LABWHC1 13:18 | PROVIDERS: ATTEND Psychiatry & Neurology Pain Medicine | DX: E55.9 Vitamin D deficiency, unspecified (principal); G35 Multiple sclerosis; R53.2 Functional quadriplegia | CPT/HCPCS: 36415; 82306 ==

== ENCOUNTER → 2020-08-23 | Outpatient (CLI) | payer MEDICARE, OTHER ==
[2020-08-23 10:29] LABS: Basophils # (A) 0.1 k/uL (0-0.2); Basophils % (A) 2 %; Eosinophils # (A) 0.3 k/uL (0-0.7); Eosinophils % (A) 4 %; HCT 46.7 % (39.0-53.0); HGB 15.2 gm/dL (13.0-17.5); Lymphocytes # (A) 2.3 k/uL (1.0-4.8); Lymphocytes % (A) 32 %; MCH 27.5 pg (25.0-35.0); MCHC 32.5 g/dL (31.0-37.0); MCV 84.5 fL (80.0-100.0); Mean Platelet Volume 6.8; Monocytes # (A) 0.4 k/uL (0-1.0); Monocytes % (A) 6 %; Neutrophils # (A) 4.1 k/uL (1.3-7.7); Neutrophils % (A) 55 %; Platelet Count 256 k/uL (150-450); RBC 5.52 m/uL (4.30-5.90); RDW 12.5 % (11.5-15.5); WBC 7.3 k/uL (3.8-10.6)
[2020-08-23 15:06] LABS: African American GFR (CKD) 131.3 (60.0-200.0); Albumin 4.3 g/dL (3.80-4.90); Albumin/Globulin Ratio 1.95 (1.60-3.17); Anion Gap 7.5 mmol/L (4.00-12.00); Carbon Dioxide 30.5 mmol/L (21.6-31.8); Globulin 2.2 g/dL (1.6-3.3); Non-African American GFR(CKD) 113.3 (60.0-200.0); Potassium 3.9 mmol/L (3.5-5.5); Total Bilirubin 0.7 mg/dL (0.2-1.2); Total Protein 6.5 g/dL (6.2-8.2)
[2020-08-23 15:19] LABS: Folate, Serum 20.6 ng/mL
[2020-08-23 16:12] LABS: Hepatitis B Core IgM Non-Reactive (Non-Reactive); Hepatitis B Surface Antigen Non-Reactive (Non-Reactive)
[2020-08-23 17:18] LABS: Hemoglobin A1C 5.3 % (4.0-6.0)
[2020-08-23 17:51] LABS: HIV 2 AB Non-Reactive (Non-Reactive); HIV AB P24 Non-Reactive (Non-Reactive); HIV P24 AG Non-Reactive (Non-Reactive)
[2020-08-25 07:14] LABS: Vit B1(Thiamine) 83 ug/L (38-122)
== END | disposition home or self-care (01) ==
LOC: LABWHC1 09:14
PROVIDERS: ATTEND Psychiatry & Neurology Pain Medicine
DX: G35 Multiple sclerosis (principal); E11.9 Type 2 diabetes mellitus without complications
CPT/HCPCS: 36415; 80053; 82607; 82746; 83036; 84207; 84425; 84439; 84443; 84481; 84591; 85025; 86704; 86705; 87340; 87390

== ENCOUNTER → 2020-09-16 | Outpatient (CLI) | payer MEDICARE, OTHER | END | disposition home or self-care (01) | LOC: LABWHC1 10:10 | PROVIDERS: ATTEND Psychiatry & Neurology Pain Medicine | DX: E55.9 Vitamin D deficiency, unspecified (principal) | CPT/HCPCS: 36415; 82306 ==

== ENCOUNTER → 2021-02-16 | Outpatient (CLI) | payer MEDICARE, OTHER ==
[2021-02-16 19:43] LABS: Eosinophils # (A) 0.18 X 10*3/uL (0.04-0.35); Eosinophils % (A) 1.8 %; HCT 47.9 % (39.6-50.0); HGB 15.5 g/dL (13.0-17.0); Lymphocytes # (A) 2.43 X 10*3/uL (0.90-5.00); Lymphocytes % (A) 24.6 %; MCHC 32.4 g/dL (32.0-37.0); MCV 86.5 fL (80.0-97.0); Monocytes # (A) 1.02 X 10*3/uL (0.20-1.00); Monocytes % (A) 10.3 %; Neutrophils # (A) 6.13 X 10*3/uL (1.80-7.70); Neutrophils % (A) 62.1 %; Platelet Count 316 X 10*3/uL (140-440); RBC 5.54 X 10*6/uL (4.40-5.60); RDW 12.6 % (11.5-14.5); WBC 9.88 X 10*3/uL (4.50-10.00)
[2021-02-17 04:03] LABS: Folate, Serum >24.0 ng/mL
[2021-02-17 05:06] LABS: ALT 31 U/L (10-49); AST 19 U/L (14-35); African American GFR (CKD) 130.4 (60.0-200.0); Albumin/Globulin Ratio 1.96 (1.60-3.17); Alkaline Phosphatase 95 U/L (41-126); Calcium 8.7 mg/dL (8.7-10.3); Carbon Dioxide 22.9 mmol/L (21.6-31.8); Chloride 107 mmol/L (96-109); Globulin 2.3 g/dL (1.6-3.3); Glucose 103 mg/dL (70-110); Non-African American GFR(CKD) 112.5 (60.0-200.0); Potassium 3.7 mmol/L (3.5-5.5); Sodium 141 mmol/L (135-145); Total Bilirubin 0.8 mg/dL (0.3-1.2); Total Protein 6.8 g/dL (6.2-8.2)
[2021-02-17 05:10] LABS: Hepatitis B Core IgM Non-Reactive (Non-Reactive); Hepatitis B Surface AB- Quant 329.1 mIU/mL; Hepatitis B Surface Antibody Reactive (Non-Reactive); Hepatitis B Surface Antigen Non-Reactive (Non-Reactive)
[2021-02-18 08:34] LABS: Vit B1(Thiamine) 101 ug/L (38-122)
[2021-02-18 12:44] LABS: HTLV-1 and 2 (EIA) Negative (Negative)
== END | disposition home or self-care (01) ==
LOC: LABWHC1 12:15
PROVIDERS: ATTEND Psychiatry & Neurology Pain Medicine
DX: G35 Multiple sclerosis (principal)
CPT/HCPCS: 36415; 80053; 82306; 82607; 82746; 83036; 84207; 84425; 84439; 84443; 84481; 84591; 85025; 86704; 86705; 86706; 86787; 86790; 87340; 87798

== ENCOUNTER → 2021-07-19 | Outpatient (CLI) | payer MEDICARE, OTHER ==
[2021-07-19 14:05] LABS: Appearance,Urine Clear (Clear); Bilirubin,Urine Negative (Negative); Blood,Urine Negative (Negative); Color,Urine Yellow; Glucose,Urine (UA) Negative (Negative); Ketones,Urine Negative (Negative); Leukocyte Esterase,Urine Negative (Negative); Nitrite,Urine Negative (Negative); Protein,Urine Trace (Negative); Specific Gravity,Urine 1.025 (1.001-1.035); Urobilinogen,Urine <2.0 mg/dL (<2.0)
[2021-07-20 01:01] LABS: Follicle Stimulating Hormone 6.2 mIU/mL; Luteinizing Hormone 4.4 mIU/mL; T4, Free (Free Thyroxine) 1.2 ng/dL (0.80-1.80)
== END | disposition home or self-care (01) ==
LOC: LABWHC1 12:59
PROVIDERS: ATTEND Psychiatry & Neurology Pain Medicine
DX: N52.9 Male erectile dysfunction, unspecified (principal)
CPT/HCPCS: 36415; 81003; 82024; 82533; 83001; 83002; 84270; 84305; 84403; 84439; 84443

== ENCOUNTER → 2022-04-19 | Outpatient (CLI) | payer MEDICARE, OTHER ==
--- NOTE | 2022-04-19 15:29 | US ---
EXAMINATION TYPE: US venous doppler duplex LE RT DATE OF EXAM: 04/19/2022 3:10 PM COMPARISON: NONE CLINICAL HISTORY: M79.604 PAIN IN RIGHT LEG. SIDE PERFORMED: TECHNIQUE: The lower extremity deep venous system is examined utilizing real time linear array sonog jane with graded compression, doppler sonography and color-flow sonography. VESSELS IMAGED: Common Femoral Vein Deep Femoral Vein Greater Saphenous Vein * Femoral Vein Popliteal Vein Small Saphenous Vein * Proximal Calf Veins (* superficial vessels) Right Leg: Negative for DVT Superficial varicose vein shows clot in right calf. IMPRESSION: 1. Right lower extremity ultrasound negative for deep venous thrombosis. 2. A superficial vein in the calf contains thrombus.
== END | disposition home or self-care (01) ==
LOC: RADUSWWP 14:00
PROVIDERS: ATTEND Family Medicine
DX: I82.811 Embolism and thrombosis of superficial veins of right lower extremity (principal)